=== PATIENT | female | born 1980 | race Hispanic/Latino ===

== ENCOUNTER 2020-07-27 18:28 | Emergency (ER) | payer SELFPAY ==
[2020-07-27 18:54] VITALS: BP 155/93
--- NOTE | 2020-07-27 20:41 | Event Note ---
ED Screening Note Date of service: 07/27/20 Time: 20:40 ED Screening Note: 40-year-old female presents to the emergency room for left great toe injury and right knee injury status post fall around 10:30 AM. Patient states that the pain is getting worse. Patient has a tubal ligation. Last menstrual period was 07/16/2020. This initial assessment/diagnostic orders/clinical plan/treatment(s) is/are subject to change based on patients health status, clinical progression and re-assessment by fellow clinical providers in the ED. Further treatment and workup at subsequent clinical providers discretion. Patient/guardian urged not to elope from the ED as their condition may be serious if not clinically assessed and managed. Initial orders include:
--- NOTE | 2020-07-27 21:32 | XRay Report ---
RIGHT KNEE 3 VIEW(S) INDICATION / CLINICAL INFORMATION: fall right knee pain COMPARISON: None available. FINDINGS: BONES / JOINT(S): No acute fracture or subluxation. No significant arthritis. SOFT TISSUES: No significant abnormality. ADDITIONAL FINDINGS: None. Signer Name: Tera Flowers MD Signed: 07/27/2020 9:27 PM Workstation Name: [id number]
--- NOTE | 2020-07-27 21:47 | XRay Report ---
LEFT FOOT 3 VIEW(S) INDICATION / CLINICAL INFORMATION: fall great toe injury COMPARISON: None available. FINDINGS: BONES / JOINT(S): No acute fracture or subluxation. No significant arthritis. Moderately prominent ty pe II accessory medial navicular ossicle. SOFT TISSUES: Moderate soft tissue swelling of the great toe. ADDITIONAL FINDINGS: None. Signer Name: Tera Flowers MD Signed: 07/27/2020 9:42 PM Workstation Name: [id number]
== END 2020-07-28 21:00 | disposition left against medical advice (07) ==
LOC: ED 18:28
DX: M25.561 Pain in right knee (principal); Z53.21 Procedure and treatment not carried out due to patient leaving prior to being seen by health care provider